=== PATIENT | male | born 1970 | race Hispanic/Latino ===

== ENCOUNTER 2024-03-19 15:12 | Emergency (ER) | payer MEDICARE, OTHER ==
[2024-03-19] MEDS ORDERED: SMZ./TMP. 800/160 MG TABLET ONE (15:33)
[2024-03-19] MEDS ORDERED: KETOROLAC 30 MG/ML INJ ONE (15:33)
[2024-03-19] MEDS ORDERED: CEPHALEXIN 250 MG CAP ONE (15:33)
[2024-03-19] MEDS ORDERED: ONDANSETRON 4 MG (ODT) TAB ONE (15:34)
[2024-03-19] MEDS ORDERED: TDAP (DIPHTH,PERTUSS(ACELL),TET VAC) 0.5 ML VIAL IMVAC ONE (15:34)
--- NOTE | 2024-03-19 16:52 | ER ---
Nurse's Notes [facility] Name: Jacob Quesada Age: 54 yrs Sex: Male : 1970 Arrival Date: 03/19/2024 Time: 15:12 Bed 12 Private MD: Diagnosis: Laceration with foreign body of left index finger without damage to nail;Local infection of the skin and subcutaneous tissue, unspecified Presentation: 03/19 15:21 Chief complaint: Patient states: laceration to L index finger that occurred on jb4 Monday. Pt reports increased pain and swelling to area. Denies fever. Coronavirus screen: Client denies travel out of the [place] in the last 14 days. Ebola Screen: Patient denies exposure to infectious person. Patient denies travel to an Ebola-affected area in the 21 days before illness onset. Complicating Factors: There are no complicating factors for this patient. Initial Sepsis Screen: Does the patient meet any 2 criteria? No. Patient's initial sepsis screen is negative. Does the patient have a suspected source of infection? No. Patient's initial sepsis screen is negative. Risk Assessment: Do you want to hurt yourself or someone else? Patient reports no desire to harm self or others. Onset of symptoms was March 16, 2024. 15:21 Method Of Arrival: Ambulatory jb4 15:21 Acuity: ANTOINETTE 3 jb4 Historical: - Allergies: 15:24 No Known Allergies; jb4 - PMHx: 15:24 Hypertensive disorder; Diabetes mellitus; jb4 - PSHx: 15:24 knee; back; foreign body removed from R eye; jb4 - Immunization history:: Client reports receiving the 2nd dose of the Covid vaccine, Last tetanus immunization: unknown. - Infectious Disease History:: Denies. - Social history:: Smoking status: Patient denies any tobacco usage or history of. Screenin:22 [facility] ED Fall Risk Assessment (Adult) History of falling in the last 3 months, jb4 including since admission Yes- single mechanical fall (1 pt) Confusion or Disorientation No (0 pts) Intoxicated or Sedated No (0 pts) Impaired Gait No (0 pts) Mobility Assist Device Used No (0 pt) Altered Elimination No (0 pt) Score/Fall Risk Level 0 - 2 = Low Risk Oriented to surroundings, Maintained a safe environment. Abuse screen: Denies threats or abuse. Nutritional screening: No deficits noted. Tuberculosis screening: No symptoms or risk factors identified. Assessment: 16:22 General: Appears in no apparent distress. comfortable, Behavior is calm, cooperative, jb4 appropriate for age. Pain: Complains of pain in palmar aspect of proximal phalanx of left index finger Pain does not radiate. Pain currently is 8 out of 10 on a pain scale. Neuro: Level of Consciousness is awake, alert, obeys commands, Oriented to person, place, time, situation. Cardiovascular: Patient's skin is warm and dry. Respiratory: Airway is patent Respiratory effort is even, unlabored, Respiratory pattern is regular, symmetrical. Derm: Skin is pink, warm \T\ dry. Musculoskeletal: Circulation, motion, and sensation intact. Range of motion: intact in all extremities. Injury Description: Laceration sustained to palmar aspect of proximal phalanx of left index finger is clean, 2.6 to 7.5 cm long, not bleeding, was sustained 2 days ago. 17:15 Reassessment: Patient appears in no apparent distress at this time. Patient and/or jb4 family updated on plan of care and expected duration. Pain level reassessed. Patient is alert, oriented x 3, equal unlabored respirations, skin warm/dry/pink. Vital Signs: 15:21 BP 173 / 87; Pulse 76; Resp 17; Temp 98.4(O); Pulse Ox 100% ; Weight 122.47 kg; Height jb4 6 ft. 0 in. ; Pain 8/10; 15:21 Body Mass Index 36.62 (122.47 kg, 182.88 cm) jb4 15:21 Pain Scale: Adult jb4 ED Course: 15:17 Patient arrived in ED. mg5 15:19 Ernst Anderson DO is Attending Physician. ms3 15:19 Wendi Gallegos FNP-C [facility]. kb 15:19 Herbie Escobar MD is Attending Physician. ms3 15:24 Triage completed. jb4 15:24 Arm band placed on right wrist. jb4 16:22 Marcial Kumar, BO is Primary Nurse. jb4 16:22 Patient has correct armband on for positive identification. Bed in low position. Call jb4 light in reach. Side rails up X 1. Provided Education on: plan of care. 17:10 Hand Left 3 View XRAY In Process Unspecified. EDMS 17:15 No provider procedures requiring assistance completed. Wound care: to laceration jb4 located on palmar aspect of proximal phalanx of left index finger was cleaned with Hibiclens, dressed with Kerlix, Patient tolerated well. 17:16 Patient did not have IV access during this emergency room visit. jb4 Administered Medications: 15:42 Drug: Boostrix Tdap IM 0.5 ml IM once; as a single dose Route: IM; Site: left deltoid; jb4 17:14 Follow up: Response: No adverse reaction jb4 15:42 Drug: Trimethoprim-Sulfamethoxazole PO (160 mg-800 mg (DS) 1 tablet PO once Route: PO; jb4 17:14 Follow up: Response: No adverse reaction jb4 15:42 Drug: Ondansetron PO 4 mg PO once Route: PO; jb4 17:15 Follow up: Response: No adverse reaction jb4 15:43 Drug: Cephalexin PO 500 mg PO once Route: PO; jb4 17:14 Follow up: Response: No adverse reaction jb4 15:43 Drug: Ketorolac IM 30 mg IM once Route: IM; Site: right deltoid; jb4 17:15 Follow up: Response: No adverse reaction; Marked relief of symptoms jb4 Outcome: 16:52 Discharge ordered by . bella 17:15 Discharged to home ambulatory, jb4 17:15 Condition: stable 17:15 Discharge instructions given to patient, Instructed on discharge instructions, follow up and referral plans. medication usage, Demonstrated understanding of instructions, follow-up care, medications, Prescriptions given X 3, 17:16 Patient left the ED. jb4 Signatures: Dispatcher [employer] EDMS Wendi Gallegos, RESEARCH CLERK-C RESEARCH CLERK-Ckb Marcial Kumar, RN RN jb4 Ernst Anderson DO DO ms3 Mya Fernandes mg5
--- NOTE | 2024-03-19 16:52 | EDPHYS ---
Physician Documentation [facility] Name: Jacob Quesada Age: 54 yrs Sex: Male : 1970 Arrival Date: 03/19/2024 Time: 15:12 Bed 12 Private MD: ED Physician Herbie Escobar HPI: 03/19 16:23 This 54 yrs old Male presents to ER via Ambulatory with complaints of kb Laceration - FINGER. 16:23 Patient is a 54-year-old male who presents for laceration to left hand, palmar aspect kb at base of second digit. States he lost his balance 4 days ago and when he caught himself he cut his hand on a piece of metal. States he has been soaking the injury in Epsom salt and applying Neosporin but today he felt like he was getting sick and had slight nausea so he came in to make sure it was not infected.. Historical: - Allergies: 15:24 No Known Allergies; jb4 - PMHx: 15:24 Hypertensive disorder; Diabetes mellitus; jb4 - PSHx: 15:24 knee; back; foreign body removed from R eye; jb4 - Immunization history:: Client reports receiving the 2nd dose of the Covid vaccine, Last tetanus immunization: unknown. - Infectious Disease History:: Denies. - Social history:: Smoking status: Patient denies any tobacco usage or history of. ROS: 16:18 Constitutional: As per HPI kb Exam: 16:18 Constitutional: This is a well developed, well nourished patient who is awake, alert, kb and in no acute distress. Head/Face: Normocephalic, atraumatic. ENT: Moist Mucous membranes Cardiovascular: Regular rate Respiratory: Respirations even and unlabored. No increased work of breathing. Talking in full sentences MS/ Extremity: Pulses equal, no cyanosis. Neurovascular intact. Full, normal range of motion. Neuro: Awake and alert, GCS 15, oriented to person, place, time, and situation. 16:18 Skin: injury, laceration(s), the wound is approximately 3 cm(s), of the palmar aspect of proximal phalanx of left index finger, that can be described as clean, no foreign body, linear, without bleeding, with slight drainage, Vital Signs: 15:21 BP 173 / 87; Pulse 76; Resp 17; Temp 98.4(O); Pulse Ox 100% ; Weight 122.47 kg; Height jb4 6 ft. 0 in. ; Pain 8/10; 15:21 Body Mass Index 36.62 (122.47 kg, 182.88 cm) jb4 15:21 Pain Scale: Adult jb4 MDM: 15:19 Medical Screening Exam initiated kb 16:19 Differential diagnosis: fracture, laceration, wound infection. Data reviewed: vital kb signs, nurses notes. 16:50 Independent interpretation of the following test(s) in the Emergency Department X-Ray: kb My interpretation is no fracture, small particles, possibly FB. Counseling: I had a detailed discussion with the patient and/or guardian regarding the historical points, exam findings, and any diagnostic results supporting the discharge/admit diagnosis, radiology results, the need for outpatient follow up, a hand specialist, to return to the emergency department if symptoms worsen or persist or if there are any questions or concerns that arise at home. 03/19 15:24 Order name: Hand Left 3 View XRAY kb 03/19 15:24 Order name: Wound Care; Complete Time: 17:14 kb 03/19 15:24 Order name: Wound dressing; Complete Time: 17:14 kb Administered Medications: 15:42 Drug: Boostrix Tdap IM 0.5 ml IM once; as a single dose Route: IM; Site: left deltoid; jb4 17:14 Follow up: Response: No adverse reaction jb4 15:42 Drug: Trimethoprim-Sulfamethoxazole PO (160 mg-800 mg (DS) 1 tablet PO once Route: PO; jb4 17:14 Follow up: Response: No adverse reaction jb4 15:42 Drug: Ondansetron PO 4 mg PO once Route: PO; jb4 17:15 Follow up: Response: No adverse reaction jb4 15:43 Drug: Cephalexin PO 500 mg PO once Route: PO; jb4 17:14 Follow up: Response: No adverse reaction jb4 15:43 Drug: Ketorolac IM 30 mg IM once Route: IM; Site: right deltoid; jb4 17:15 Follow up: Response: No adverse reaction; Marked relief of symptoms jb4 Disposition Summary: 03/19/24 16:52 Discharge Ordered Notes: Location: Home kb Condition: Stable kb Diagnosis - Laceration with foreign body of left index finger without damage to nail kb - Local infection of the skin and subcutaneous tissue, unspecified kb Followup: kb - With: Emergency Department - When: As needed - Reason: Worsening of condition Followup: kb - With: Private Physician - When: 2 - 3 days - Reason: Recheck today's complaints, Continuance of care, Re-evaluation by your physician Discharge Instructions: - Discharge Summary Sheet kb - Laceration Care, Adult, [id number] kb - Wound Infection, [id number] kb Forms: - Medication Reconciliation Form kb - Antibiotic Education kb - Prescription Opioid Use kb - Patient Portal Instructions kb - Leadership Thank You Letter kb Prescriptions: - Cephalexin 500 mg Oral Capsule - take 1 capsule ORAL route every 8 hours for 10 days; 30 capsule; Refills: 0, kb Product Selection Permitted - Diclofenac Sodium 75 mg Oral tablet, delayed release (enteric coated) - take 1 tablet ORAL route 2 times per day As needed; 30 tablet; Refills: 0, kb Product Selection Permitted - Bactrim DS 800-160 mg Oral Tablet - take 1 tablet ORAL route every 12 hours for 10 days; 20 tablet; Refills: 0, kb Product Selection Permitted Addendum: 03/20/2024 17:16 I was immediately available for consultation during this patient's visit. I did not e c2 personally see the patient or discuss the patient with the MARIA DEL CARMEN. . Signatures: Dispatcher [employer] Wendi Proctor, LEVY-C LEVY-Marcial Jones, RN RN jb4 Herbie Escobar MD MD ec2
--- NOTE | 2024-03-19 17:16 | RAD REPORT ---
EXAM: XR LEFT HAND HISTORY: Pain. PAIN COMPARISON: None TECHNIQUE: Multiple projections of the left hand submitted. FINDINGS: Mild soft tissue swelling is seen affecting the second finger. Tiny radiodensities in soft tissues could be foreign bodies, along the palmar aspect.. No fracture.
[2024-03-19 17:25] VITALS: BP 173/87; TEMP 98.4; O2SAT 100
== END 2024-03-19 17:16 | disposition home or self-care (01) ==
LOC: ER 15:12
DX: S61.211A Laceration without foreign body of left index finger without damage to nail, initial encounter (principal); L08.9 Local infection of the skin and subcutaneous tissue, unspecified
CPT/HCPCS: 73130; Q0162; 96372; 99284